=== PATIENT | female | born 1985 | race Caucasian/White ===

== ENCOUNTER 2020-01-23 08:02 | Outpatient (CLI) | payer OTHER ==
--- NOTE | 2020-01-23 09:22 | MRI ---
MRI RIGHT KNEE: DATE: 01/23/2020. PROVIDED CLINICAL HISTORY: Pain. FINDINGS: The anterior cruciate ligament, posterior cruciate ligament, medial collateral ligament, and lateral collateral ligamentous complex demonstrate an intact MR appearance. The extensor mechanism appears i ntact. There is irregularity to the free edge of the posterior horn of the lateral meniscus with grade III s ignal demonstrated on sagittal image 8 of series 7. There is no evidence for meniscal displacement. The medial meniscus demonstrates no evidence for a tear. There is signal inhomogeneity involving the patellar articular cartilage. There is no evidence for a focal articular cartilage defect apparent. There is signal inhomogeneity involving the articular ca rtilage of the posterior central weightbearing portion of the lateral femoral condyle suggesting fiss uring with near full thickness articular cartilage loss involving the far posterior lateral femoral c ondyle. There is minimal subjacent signal alteration. There is edema within the lateral infrapatell ar fat. There is borderline patella gene. No focal concerning regional marrow or muscular signal abnormality is evident. The amount of fluid w ithin the knee joint appears physiologic. IMPRESSION: 1. Findings compatible with mild displaced posterior horn lateral meniscal tear. 2. 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 3. Borderline patella gene and edema within the lateral infrapatellar fat, which may reflect a white lar tracking abnormality. POS: ED
== END 2020-01-23 08:03 | disposition home or self-care (01) ==
LOC: SCSMRI 08:02
PROVIDERS: ATTEND Orthopaedic Surgery
DX: S83.281A Other tear of lateral meniscus, current injury, right knee, initial encounter (principal); M22.2X1 Patellofemoral disorders, right knee; R60.0 Localized edema